=== PATIENT | male | born 1960 | race Caucasian/White ===

== ENCOUNTER → 2020-08-16 | Outpatient (CLI) | payer BC ==
[2020-08-16 12:30] VITALS: BP 120/70; PULSE 89; RESP 16; TEMP 98.2; BMI 42.0
--- NOTE | 2020-08-16 14:36 | FL ---
SINGLE CONTRAST BARIUM SWALLOW: CLINICAL HISTORY: 60-year-old male k21.9, GERD TECHNIQUE: Single contrast exam performed with 2 ounces of thin barium. Total fluoroscopy time: 1 minute 56 seconds. Total images: 18. FINDINGS: The patient swallowed oral contrast without difficulty or delay. Mild tertiary peristaltic waves are present. There is dilatation of the mid to distal esophagus. While there is prompt passage of contras t across the GE junction into the proximal stomach, there is initial cut off at the level of the lap band which remains appropriately positioned. A thin intermittent stream is noted across the lap band. Multiple secondary stripping waves are encountered in the esophagus try to push the contrast beyond the relative obstruction. Contrast column reaches up to the clavicles. On the 10 minute postexam, residual contrast remains in the dilated distal esophagus. No obvious fill ing defect is encountered. IMPRESSION: The lap band is tight with a moderate to severe relative obstruction. The esophagus is dilated. No ev idence for lap band prolapse.
--- NOTE | 2020-08-16 14:40 | P.BASOAP ---
Subjective Progress Note Date: 08/16/20 Principal diagnosis: Morbid obesity Patient here today complaining of acid reflux. Last seen August 2016. Patient had 8.7 mL in his band. Upper GI was performed which showed the band was somewhat tight. Mild esophageal dilation was noted at that time. Patient declined loosening or emptying the band at that time. Patient states over the last 5 months has had increased reflux. Denies dysphagia, no nausea or vomiting. Still eating similar amounts as previous. Had a CAT scan obtained at an outside institution which apparently showed some problem with his band. He cannot elaborate. We do not have access to that report although we have called for it. Objective - Vital Signs Vital signs: Vital Signs Temp 98.2 F 08/16/20 12:26 Pulse 89 08/16/20 12:26 Resp 16 08/16/20 12:26 BP 120/70 08/16/20 12:26 Pulse Ox Intake & Output 08/15/20 08/16/20 08/16/20 18:59 06:59 18:59 Weight 144.696 kg - Exam Abdomen: Soft, nontender, nondistended Assessment/Plan (1) Morbid obesity Narrative/Plan: Patient with increasing reflux with band in place. Options reviewed. We'll obtain recent CAT scan results. For now will order esophagram to evaluate the band tightness and orientation. Esophagram reviewed with radiology. Band is very tight with significant pouch distention and esophageal dilation. Films reviewed with the patient. He is agreeable to emptying the band at this time. We'll still try to obtain the patient's recent CAT scan results. Follow-up 2 months. The patient's lap band port was palpated. The site was aseptically prepped. The Robb needle was advanced into the port. A total of 7 ml of fluid was activated. Patient's band is now empty. Pressure was held and a sterile dressing was applied. Plan: Date: 08/16/20 Initial Weight: 144.696 kg Initial BMI: 42.0 Current Weight: 144.696 kg Current BMI: 42.0 Type of Surgery: Total Volume in Band: Previous Volume: Volume Removed: Volume Added: Band Size:
== END | disposition home or self-care (01) ==
LOC: BARWHC3 11:42
PROVIDERS: ATTEND Surgery
DX: Z46.51 Encounter for fitting and adjustment of gastric lap band (principal); E66.01 Morbid (severe) obesity due to excess calories; Z68.41 Body mass index [BMI] 40.0-44.9, adult
CPT/HCPCS: 74220; 99212

== ENCOUNTER → 2020-10-25 | Outpatient (CLI) | payer BC ==
[2020-10-25 13:56] VITALS: BP 136/95; PULSE 75; RESP 16; TEMP 98.2; BMI 44.8
--- NOTE | 2020-10-25 15:25 | P.BASOAP ---
Subjective Progress Note Date: 10/25/20 Principal diagnosis: Morbid obesity Patient returns for recheck. He was last seen August 16. At that time the patient had an upper GI which showed the band to be quite tight. His band was loosened from 7 down to 0 mL. Patient says his symptoms did not change much since he was not having significant dysphagia or vomiting prior to the upper GI. He was concerned that when the upper GI was ordered he had just eaten lunch and there was no residual food present on the upper GI. He describes increased flatus. Objective - Vital Signs Vital signs: Vital Signs Temp 98.2 F 10/25/20 13:53 Pulse 75 10/25/20 13:53 Resp 16 10/25/20 13:53 BP 136/95 10/25/20 13:53 Pulse Ox Intake & Output 10/24/20 10/25/20 10/25/20 18:59 06:59 18:59 Weight 158.304 kg - Exam Abdomen: Soft, nontender, nondistended Assessment/Plan (1) Morbid obesity Narrative/Plan: Patient would like to have the band refilled at this time. He has gained 30 pounds since last visit. We agreed to adding 5.5 mL of fluid to the band. The patient's lap band port was palpated. The site was aseptically prepped. The Robb needle was advanced into the port. A total of 5.5 ml of fluid was added. Pressure was held and a sterile dressing was applied. Plan: Date: 10/25/20 Initial Weight: 144.696 kg Initial BMI: 40.9 Current Weight: 158.304 kg Current BMI: 44.8 Type of Surgery: Total Volume in Band: Previous Volume: Volume Removed: Volume Added: Band Size:
== END | disposition home or self-care (01) ==
LOC: BARWHC3 13:15
PROVIDERS: ATTEND Surgery
DX: Z46.51 Encounter for fitting and adjustment of gastric lap band (principal); Z98.84 Bariatric surgery status; E66.01 Morbid (severe) obesity due to excess calories; Z68.41 Body mass index [BMI] 40.0-44.9, adult
CPT/HCPCS: 99212

== ENCOUNTER → 2021-02-21 | Outpatient (CLI) | payer BC ==
[2021-02-21 13:51] VITALS: BP 161/62; PULSE 71; TEMP 98.2; BMI 46.7
--- NOTE | 2021-02-21 15:43 | P.BASOAP ---
Subjective Progress Note Date: 02/21/21 Principal diagnosis: Morbid obesity Patient returns to clinic. Interested in having more fluid added to his band. He has gained 15 pounds since last visit. He did not have his esophagram today as we had planned. He would prefer to have the adjustment performed with an esophagram next visit. Denies nausea vomiting, no reflux. More flatus. Objective - Vital Signs Vital signs: Vital Signs Temp 98.2 F 02/21/21 13:42 Pulse 71 02/21/21 13:42 Resp BP 161/62 02/21/21 13:42 Pulse Ox Intake & Output 02/20/21 02/21/21 02/21/21 18:59 06:59 18:59 Weight 165.108 kg - Exam Abdomen: Soft, nontender, nondistended Assessment/Plan (1) Morbid obesity Narrative/Plan: Patient interested in lap band adjustment. We'll add 1 mL for a total of 6.5 mL. Band was too tight in August proven by esophagram when he had 7 mL evacuated. Plan esophagram next visit if patient interested and band adjustment. Plan: Date: 02/21/21 Initial Weight: 144.696 kg Initial BMI: 40.9 Current Weight: 165.108 kg Current BMI: 46.7 Type of Surgery: Total Volume in Band: 5.5 Previous Volume: Volume Removed: Volume Added: Band Size:
== END ==
LOC: BARWHC3 13:04
PROVIDERS: ATTEND Surgery
DX: E66.01 Morbid (severe) obesity due to excess calories (principal); Z68.42 Body mass index [BMI] 45.0-49.9, adult
CPT/HCPCS: 99212